=== PATIENT | male | born 1945 | race Caucasian/White ===

== ENCOUNTER 2016-10-29 12:38 | Day surgery (SDC) | payer MEDICARE, OTHER ==
[~2016-10-29] VITALS: Ht 172.7 cm; Wt 143.2 kg
[~2016-10-29 12:38] MED LIST: ALDACTONE 25MG25 M1 PO; AMLOPIDINE PO; ASPIRIN E.C.325 MG PO; ATROVENT I0.2 MG/1 M IH; CARDI-OMEGA1000 MG PO; CHROMIUM PICO500 MCG PO; CINNAMON500 MG PO; COREG 25MG25 MG/TAB PO; DALIRESP500 MCG PO; DEMADEX10 MG PO; EFFEXOR 75M75 MG/TAB PO; EFFIENT10 MG PO; FEROSUL325 MG PO; FOLIC ACID 40400 MCG PO; GLUCOSAMINE500 M1 PO; HUMALOG PEN100 U/ML SC; HUMALOG100 U/ML SC; K-DUR 10 MEQ T10 MEQ PO; LANTUS SOLOS100 U/ML SC; LANTUS100 U/ML SC; LIPITOR20 MG PO; MOBIC15 MG PO; NEXIUM 40MG40 MG PO; NITROSTAT0.3 MG SL; NORVASC 10MG10 MG PO; PERCOCET 325 MG1 TA2 PO; PROAIR HFA0.09 MG/AC IH; ROBAXIN 75750 MG/TAB PO; RT SPIRIVA18 MCG IH; THEO-24 30300 MG/CAP PO; TRICOR 48MG48 MG PO; VASOTEC 10M10 MG/TAB PO; VASOTEC10 MG PO; VASOTEC20 MG PO; VENTOLIN0.09 MG IH; VITAMIN C500 MG PO; ZANAFLEX CAPSULE2 MG PO; ZOLOFT50 MG PO
[2016-10-29 13:54] VITALS: BP 194/93; PULSE 56; TEMP 98.1
[2016-10-29] MEDS ORDERED: REQUIP0.25 MG PO (14:14)
[2016-10-29] MEDS ORDERED: BUMEX2 MG PO (14:15)
[2016-10-29] MEDS ORDERED: ASPIRIN 32325 MG/TAB PO (14:15)
[2016-10-29] MEDS ORDERED: COMBIRESP IH (14:16)
[2016-10-29] MEDS ORDERED: ALBUTEROL0.83 MG/ML IH (14:17)
[2016-10-29] MEDS ORDERED: PERCOCET 325 MG1 TA2 PO (14:17)
[2016-10-29] MEDS ORDERED: BROVANA15 MCG/2 M IH (14:17)
[2016-10-29] MEDS ORDERED: THEO-DUR 3300 MG/TAB PO (14:18)
[2016-10-29 15:00] VITALS: BP 155/56; PULSE 60; TEMP 98.3
[2016-10-29 15:15] VITALS: BP 155/53; PULSE 59
[2016-10-29 15:30] VITALS: BP 163/59; PULSE 58
[2016-10-29 15:45] VITALS: BP 167/65; PULSE 58
== END 2016-10-29 16:15 | disposition home or self-care (01) ==
LOC: SDCO 12:38
DX: R06.00 Dyspnea, unspecified (principal); R05 Cough; R09.89 Other specified symptoms and signs involving the circulatory and respiratory systems; E11.9 Type 2 diabetes mellitus without complications; G47.33 Obstructive sleep apnea (adult) (pediatric); F17.210 Nicotine dependence, cigarettes, uncomplicated; J42 Unspecified chronic bronchitis
CPT/HCPCS: J0360; J0456; J2704; J2920; J7030; J7050

== ENCOUNTER 2019-04-01 14:45 | Inpatient (IN) | payer MEDICARE, OTHER ==
[~2019-04-01] VITALS: Ht 172.7 cm; Wt 122.2 kg
[~2019-04-01 14:45] MED LIST changes: +ALBUTEROL0.83 MG/ML IH; +ASPIRIN 32325 MG/TAB PO; +BROVANA15 MCG/2 M IH; +BUMEX2 MG PO; +COMBIRESP IH; +REQUIP0.25 MG PO; +THEO-DUR 3300 MG/TAB PO
[2019-04-01 16:26] VITALS: BP 141/72; PULSE 97; TEMP 98.3
[2019-04-01] MEDS ORDERED: PEPCID 20MG TAB20 MG PO (17:05)
[2019-04-01] MEDS ORDERED: BASAGLAR K100 UNIT/1 SQ (17:08)
[2019-04-01] MEDS ORDERED: COLACE 100100 MG/CAP PO (17:11)
[2019-04-01] MEDS ORDERED: EFFIENT10 MG PO (17:11)
[2019-04-01] MEDS ORDERED: CARDURA4 MG PO (17:11)
[2019-04-01] MEDS ORDERED: FLONASEALLERGY NS (17:12)
[2019-04-01] MEDS ORDERED: FERROUS GL325 MG/TAB (17:12)
[2019-04-01] MEDS ORDERED: PULMICORT0.5 MG/2 M IH (17:13)
[2019-04-01] MEDS ORDERED: SYNTHROID0.05 MG/TA PO (17:14)
[2019-04-01] MEDS ORDERED: VENTOLIN0.09 MG IH (17:15)
[2019-04-01] MEDS ORDERED: ZYLOPRIM 300MG300 MG PO (17:15)
[2019-04-01] MEDS ORDERED: PERCOCET 325 MG1 TA2 PO (17:16)
[2019-04-01 19:27] VITALS: BP 151/67; PULSE 106; TEMP 98.5
[2019-04-01 23:54] VITALS: BP 134/78; PULSE 105; TEMP 98.3
[2019-04-02] VITALS (14 sets, daily range): BP systolic 54–147; BP diastolic 33–88; PULSE 65–79; TEMP 97.6–98.7
[2019-04-02 07:49] LABS: BASO % 0.2 % (0.0-2.0); EOS % 0.1 % (0-4.0); GRAN # 8.6 (1.4-6.5); GRAN % 85.6 % (42.2-75.2); HEMOGLOBIN 10.6 g/dl (13.5-18.0); LYMPH # 0.6 (1.2-3.4); LYMPH % 5.9 % (20.0-51.0); MEAN CELL VOLUME 86 fl (80.0-100.0); MEAN CORPUSCULAR HEMOGLOBIN 28 pg (27.0-31.0); MEAN CORPUSCULAR HGB CONC 32 g/dl (33.0-37.0); MEAN PLATELET VOLUME 11.3 fl (7.4-10.4); MONO # 0.8 (0.1-0.6); MONO % 7.4 % (1.7-9.3); PLATELET COUNT 171 K/mm3 (130-400); RED BLOOD COUNT 3.86 M/mm3 (4.20-5.60); REDCELL DISTRIBUTION WIDTH-CV 14.9 % (11.5-14.5)
[2019-04-02 08:08] LABS: HEMATOCRIT 33.2 % (42.0-52.0)
[2019-04-02 08:14] LABS: ALBUMIN 3.1 gm/dL (3.5-5.0); BILIRUBIN,TOTAL 5.6 mg/dL (0.0-1.0); CALCIUM 8.4 mg/dL (8.4-10.2); CREATININE, serum 3.34 (0.66-1.25); POTASSIUM 3.6 mmol/L (3.4-5.0); TOTAL PROTEIN 6.5 gm/dL (6.4-8.2)
--- NOTE | 2019-04-02 09:45 | NUR ---
patient assessment complete and charted. Patient sitting on edge of bed upon entry. Lung sounds diminished throughout, patient on room air and denies SOB. Pt denies chest pain, dizziness, palpitations, N/V. patient on tele in afib, rate controlled. BLE edema 2+, skin is tight. Mild guarding to abdomen. Patient has been NPO for procedure this afternoon. Denies other needs at this time. Call light within reach.
[2019-04-02 10:35] LABS: MUCOUS Present /lpf; PH 5 (5-8); SQUAMOUS EPITHELIAL 0-2 /hpf; URINE APPEARANCE Cloudy; URINE BACTERIA Rare /hpf; URINE BILIRUBIN Positive (NEGATIVE); URINE BLOOD 1+ (NEGATIVE); URINE COLOR Amber; URINE GLUCOSE Negative (NEGATIVE); URINE KETONE Negative (NEGATIVE); URINE LEUKOCYTE ESTERASE Negative (NEGATIVE); URINE NITRATE Negative (NEGATIVE); URINE PROTEIN(semi-quant) 3+ (NEGATIVE); URINE RBC None Seen /hpf; URINE UROBILINOGEN >=4.0 mg/dL (NEGATIVE)
[2019-04-02 10:44] LABS: COLLECTION METHOD CLEAN CATCH
--- NOTE | 2019-04-02 11:02 | NUR ---
Initial visit; Patient thanked Diamond Mounter for looking in on him and offering God's blessings.
--- NOTE | 2019-04-02 13:00 | NUR ---
Patient down for procedure at this time.
--- NOTE | 2019-04-02 15:00 | NUR ---
Patient back from procedure. Post op monitoring started.
--- NOTE | 2019-04-02 16:17 | NUR ---
VALERIE met with the patient and patient's son to discuss discharge plan. The patient lives in [place] with his daughter, Tatianna. He reports independence with ADLs and has a cane, walker, wheelchair, and home oxygen and a CPAP from [employer]. The patient's PCP is Dr. Erika Mata and he receives his medications through [facility] or [facility]. He reports no difficulties obtaining his meds. The patient does not have advanced directives, but he was interested in obtaining a form for DPOA-HC. VAELRIE provided. The patient plans to return home upon discharge. No additional needs at this time.
--- NOTE | 2019-04-02 18:15 | NUR ---
patient post op SBPs were in the 90s and low 100s, one recorded in 50s. Patient cuff on right arm, hard to get good fit. Cuff moved to right forearm. Systolic readings were 119, 115 and 125.
--- NOTE | 2019-04-02 18:59 | NUR ---
Patient heparin drip started. IV site for fluids attempted by TATIANA Lowery and TATIANA Hartman. Unsuccessul. TATIANA Lowery called house for shift boss to give try this evening to restart fluids. Clear liquid tray ordered. No other needs at this time.
[2019-04-02 19:01] LABS: PARTIAL THROMBOPLASTIN TIME 35.8 SECONDS (26.0-37.0)
--- NOTE | 2019-04-02 20:04 | NUR ---
Report given to TATIANA John. Informed nurse taking over cares to check BPs once second IV site was completed.
--- NOTE | 2019-04-03 02:12 | NUR ---
Heparin xA 0.36. No change in heparin gtt per orders. Recheck at 0700.
[2019-04-03 03:05] VITALS: BP 128/62; PULSE 72; TEMP 98.6
--- NOTE | 2019-04-03 03:16 | NUR ---
Called to pt room. Patient c/o chest pain. BP 128/62. HR afib 70's. Notified LARON Vasquez. See orders. BG 117. Will give ordered morphine.
[2019-04-03 03:57] LABS: TROPONIN-I 0.07 ng/mL (0.000-0.035)
--- NOTE | 2019-04-03 03:57 | NUR ---
Troponin .070. LARON Vasquez notified. Order to give nitro, recheck BP. Will notify Christina when CXR is done.
[2019-04-03 04:02] VITALS: BP 135/57; PULSE 83; TEMP 98.5
--- NOTE | 2019-04-03 04:31 | NUR ---
Patient in bed, awake. Denies pain. BG 144. Holding levemir d/t NPO at midnight, per LARON Vasquez. Denies further needs at this time.
[2019-04-03 07:55] LABS: BASO % 0.1 % (0.0-2.0); EOS # 0.1 (0.0-0.7); GRAN # 8.3 (1.4-6.5); GRAN % 85.6 % (42.2-75.2); HEMOGLOBIN 10.2 g/dl (13.5-18.0); LYMPH # 0.5 (1.2-3.4); LYMPH % 4.9 % (20.0-51.0); MEAN CELL VOLUME 87 fl (80.0-100.0); MEAN CORPUSCULAR HEMOGLOBIN 27 pg (27.0-31.0); MEAN CORPUSCULAR HGB CONC 31 g/dl (33.0-37.0); MEAN PLATELET VOLUME 11.6 fl (7.4-10.4); MONO # 0.7 (0.1-0.6); MONO % 7.1 % (1.7-9.3); PLATELET COUNT 188 K/mm3 (130-400); REDCELL DISTRIBUTION WIDTH-CV 15.2 % (11.5-14.5)
[2019-04-03 08:05] LABS: ALBUMIN 3.4 gm/dL (3.5-5.0); BILIRUBIN,TOTAL 3.4 mg/dL (0.0-1.0); CALCIUM 8.5 mg/dL (8.4-10.2); CREATININE, serum 3.57 (0.66-1.25); PHOSPHOROUS 5.4 mg/dL (2.5-4.5); POTASSIUM 3.8 mmol/L (3.4-5.0)
[2019-04-03 08:17] LABS: TROPONIN-I 0.064 ng/mL (0.000-0.035)
[2019-04-03 08:30] LABS: INR 1.1 (0.8-3.0); PROTHROMBIN TIME 12.4 SECONDS (9.7-12.8)
--- NOTE | 2019-04-03 08:30 | NUR ---
Assessment complete. Pt sitting up on side of bed, A&O x 4. Breath sounds CTAB. BS active x 4. Heparin drip infusing per orders through left AC site without s/s of complications, restarted following lab draw. Pt denies pain at this time. No further needs reported. Call light in reach.
[2019-04-03 08:35] VITALS: BP 126/63; PULSE 84; TEMP 98.3
[2019-04-03 12:22] VITALS: BP 126/69; BP 141/79; PULSE 68; PULSE 75; TEMP 98; TEMP 98.1
[2019-04-03 13:21] LABS: URINE PROTEIN:CREAT RATIO 1.15 (0.00-0.14)
[2019-04-03 15:03] VITALS: BP 109/56; PULSE 73; TEMP 98.6
--- NOTE | 2019-04-03 17:00 | NUR ---
Pt resting in bed with eyes closed, resp even and unlabored. POC for diet and weekend reviewed with pt. No further needs reported. Call light in reach.
--- NOTE | 2019-04-03 20:30 | NUR ---
Initial shift assessment done- states having back pain 07/30- will give a [place] as ordered, o2 at 2L/nc, Tele on, afib, Has SOB with exertion. Heparin drip at 27cc/hr- next hepxa at 2100-
[2019-04-03 23:03] VITALS: BP 106/68; PULSE 82; TEMP 98.5
[2019-04-04 05:40] VITALS: PULSE 76
--- NOTE | 2019-04-04 05:47 | NUR ---
Awake for the past couple hours- sitting at edge of bed,, did get another [place] for back pain 07/30
--- NOTE | 2019-04-04 07:00 | NUR ---
Pt AAOx4 resting in bed with no complaints. Pt states "I actually got some good rest last night. Night before last I only selpt one hour and wasnt allowed to eat". Heparin gtt infusion rate and HepXa level confirmed with power and recovery shift engineer RN. Call light in reach, no complaints at this time MD Uriel in to see pt at 0900, no new orders.
[2019-04-04 08:07] LABS: BASO % 0.1 % (0.0-2.0); EOS # 0.2 (0.0-0.7); EOS % 1.9 % (0-4.0); GRAN # 7.9 (1.4-6.5); GRAN % 82.4 % (42.2-75.2); HEMOGLOBIN 10.4 g/dl (13.5-18.0); LYMPH # 0.7 (1.2-3.4); LYMPH % 7.5 % (20.0-51.0); MEAN CELL VOLUME 87 fl (80.0-100.0); MEAN CORPUSCULAR HEMOGLOBIN 27 pg (27.0-31.0); MEAN CORPUSCULAR HGB CONC 31 g/dl (33.0-37.0); MEAN PLATELET VOLUME 11.1 fl (7.4-10.4); MONO # 0.7 (0.1-0.6); MONO % 7.1 % (1.7-9.3); PLATELET COUNT 218 K/mm3 (130-400); RED BLOOD COUNT 3.81 M/mm3 (4.20-5.60); REDCELL DISTRIBUTION WIDTH-CV 15.1 % (11.5-14.5)
[2019-04-04 08:17] VITALS: BP 109/63; PULSE 68; TEMP 98
[2019-04-04 08:23] LABS: ALBUMIN 3.2 gm/dL (3.5-5.0); BILIRUBIN,TOTAL 2.1 mg/dL (0.0-1.0); CALCIUM 8.5 mg/dL (8.4-10.2); CREATININE, serum 3.4 (0.66-1.25); HEMATOCRIT 33.3 % (42.0-52.0); POTASSIUM 3.7 mmol/L (3.4-5.0); TOTAL PROTEIN 6.8 gm/dL (6.4-8.2)
--- NOTE | 2019-04-04 09:00 | NUR ---
Lab called regarding delayed Hep XA level - reported to me ETA is >10min d/t reagent mixing difficulties.
--- NOTE | 2019-04-04 09:40 | NUR ---
Care assumed by care transitions managerTATIANA Ac RN
--- NOTE | 2019-04-04 10:45 | NUR ---
This nurse resumed care at this time. The patient is sitting up in bed without pain or needs. The heparin gtt is running at 28ml/hr. The call light is in place.
[2019-04-04 12:12] VITALS: BP 123/46; PULSE 76; TEMP 98.4
[2019-04-04 14:35] VITALS: BP 114/50; PULSE 97; TEMP 98.6
--- NOTE | 2019-04-04 16:20 | NUR ---
Care resumed, hand off report recieved from TATIANA Ac. Labs reviewed - HepXA =0.0. Heparin infusion assessed and found to be paused. MD Jazmine notifed. Repeat HepXA drawn, 0.0 level confirmed. Bolus and gtt resumed per protocol. TATIANA Santiago confirmed bolus dose and continued infustion dose and rate together.
[2019-04-04 20:56] VITALS: BP 137/71; PULSE 72; TEMP 98.1
--- NOTE | 2019-04-04 21:00 | NUR ---
Initial shift assessment done- resting quietly- watching TV- no requests- IV heparin drip at 28cc/hr{ 2800units/hr}-- next hepa check at 2300- Tele on- afib. Did have abd x ray tonight-
[2019-04-05] VITALS (7 sets, daily range): BP systolic 113–153; BP diastolic 46–77; PULSE 58–84; TEMP 97.4–98.6
--- NOTE | 2019-04-05 01:20 | NUR ---
hEPXA LOW AT 0.11-- WILL BOLUS 1000UNITS HEPARIN AND INCREASE DRIP TO 30.5CC/HR- NEXT HEPXA AT 0700
--- NOTE | 2019-04-05 06:04 | NUR ---
Did sleep fair throughout the night- medicated x1 with [place] for back pain 04/29, slept well after. Heparin drip at 30.5cc/hr to left hand IV site.
[2019-04-05 07:07] LABS: BASO % 0.1 % (0.0-2.0); EOS # 0.2 (0.0-0.7); EOS % 1.5 % (0-4.0); GRAN # 9.7 (1.4-6.5); GRAN % 83.8 % (42.2-75.2); HEMOGLOBIN 10.9 g/dl (13.5-18.0); LYMPH # 0.7 (1.2-3.4); LYMPH % 5.8 % (20.0-51.0); MEAN CELL VOLUME 86 fl (80.0-100.0); MEAN CORPUSCULAR HEMOGLOBIN 27 pg (27.0-31.0); MEAN CORPUSCULAR HGB CONC 32 g/dl (33.0-37.0); MEAN PLATELET VOLUME 10.5 fl (7.4-10.4); MONO # 0.8 (0.1-0.6); MONO % 7.2 % (1.7-9.3); PLATELET COUNT 247 K/mm3 (130-400); RED BLOOD COUNT 4.01 M/mm3 (4.20-5.60); REDCELL DISTRIBUTION WIDTH-CV 15.2 % (11.5-14.5)
[2019-04-05 07:10] LABS: CALCIUM 8.6 mg/dL (8.4-10.2); CREATININE, serum 3.12 (0.66-1.25); POTASSIUM 3.9 mmol/L (3.4-5.0)
--- NOTE | 2019-04-05 07:15 | NUR ---
Report received from TATIANA Kemp. PT in bed resting at side of bed, ordered breakfast, 02 at 2L NC. Will continue to monitor.
[2019-04-05 07:34] LABS: HEMATOCRIT 34.6 % (42.0-52.0)
--- NOTE | 2019-04-05 09:43 | NUR ---
Assessment charted. Pt feeling well, tolerating PO well, denies any pain right now. IVF to LH with heparin gtt and zosyn going. Telemetry on, pt is in afib rate controlled. Pt likes to sit at side of bed with feet in dependent position, discussed need to get up and ambulate today to get circulation going and promote exercise, pt waiting for son to arrive with walker and pt will ambulate. Reviewed plan for lexiscan tomorrow and possible lap choley if lexiscan negative. Will continue to monitor.
--- NOTE | 2019-04-05 18:48 | NUR ---
Pt has done well today. Up to ambulate hallws with me this afternoon, ambulates well but walks hunched over walker. 02 titrated off during shift, 98% after walk. Pt rested in chair comfortably. Tolerating PO well. Heparin gtt continues. Will give bedside shift report to nightshift nurse who will resume care.
[2019-04-06] VITALS (10 sets, daily range): BP systolic 112–128; BP diastolic 48–72; PULSE 65–85; TEMP 97.6–98.6
[2019-04-06 06:27] LABS: MEAN CELL VOLUME 87 fl (80.0-100.0); MEAN CORPUSCULAR HEMOGLOBIN 27 pg (27.0-31.0); MEAN CORPUSCULAR HGB CONC 31 g/dl (33.0-37.0); MEAN PLATELET VOLUME 10.6 fl (7.4-10.4); PLATELET COUNT 260 K/mm3 (130-400); RED BLOOD COUNT 4.05 M/mm3 (4.20-5.60); REDCELL DISTRIBUTION WIDTH-CV 15.2 % (11.5-14.5)
[2019-04-06 06:34] LABS: CALCIUM 9.1 mg/dL (8.4-10.2); POTASSIUM 4.1 mmol/L (3.4-5.0)
[2019-04-06 06:38] LABS: HEMATOCRIT 35.3 % (42.0-52.0)
--- NOTE | 2019-04-06 07:15 | NUR ---
Report received from TATIANA Mejía. PT in bed resting, awake and alert, will continue to monitor.
--- NOTE | 2019-04-06 07:54 | NUR ---
Pt has low back pain today from bed and recliner, diaper folder provided PRN pain meds. Sitting at side of bed doing am care. 1st dose of lexiscan nuc meds given. IV heparin infusing and zosyn. Anticipating testing today. NPO at this time. Assessment charted. Will continue to monitor.
[2019-04-06 08:43] LABS: BAND 9 % (0-10); EOSINOPHIL 4 % (0-4); LYMPHOCYTE 10 % (20.0-51.0); METAMYELOCYTE 2 % (0-0); NEUTROPHILS 70 % (42.0-75.2)
[2019-04-06 08:44] LABS: PLATELET ESTIMATE NORMAL (NORMAL)
[2019-04-06 15:57] LABS: HEMOGLOBIN 10.9 g/dl (13.5-18.0)
--- NOTE | 2019-04-06 18:51 | NUR ---
Pt discussed with Dr. Reid and notified him of dark black/green malodorous stools today. Dr. Reid wants to wait on surgery until the occult blood could be collected. PT and staff agreeable to plan. Ordered a CL tray and pt ate a good portion of it. Pt denies needs, resting in bed with fmaily at bedside. Will give bedside shift report to nighthshift nurse who will resume care.
--- NOTE | 2019-04-06 20:30 | NUR ---
Initial shift assessment done- tele on: Afib, denies pain at this time, has been resting for past couple hours-using Bipap . Understands to call for assistance to bathroom-also we are needing stool specimen- pt states understanding
[2019-04-07] VITALS (321 sets, daily range): BP systolic 116–150; BP diastolic 56–73; PULSE 55–87; TEMP 97.5–98; O2SAT 90–100
--- NOTE | 2019-04-07 05:28 | NUR ---
Quiet night-- was up to bathroom x2 , did have 2 black soft stool during the night- did test positive for occult blood, did let Crystal MCNULTY know- no new orders at this time.
[2019-04-07 08:02] LABS: HEMOGLOBIN 10.5 g/dl (13.5-18.0); MEAN CELL VOLUME 87 fl (80.0-100.0); MEAN CORPUSCULAR HEMOGLOBIN 27 pg (27.0-31.0); MEAN CORPUSCULAR HGB CONC 31 g/dl (33.0-37.0); MEAN PLATELET VOLUME 10.4 fl (7.4-10.4); PLATELET COUNT 294 K/mm3 (130-400); RED BLOOD COUNT 3.84 M/mm3 (4.20-5.60); REDCELL DISTRIBUTION WIDTH-CV 15.4 % (11.5-14.5)
[2019-04-07 08:05] LABS: HEMATOCRIT 33.5 % (42.0-52.0)
[2019-04-07 08:10] LABS: CALCIUM 8.9 mg/dL (8.4-10.2); CREATININE, serum 2.92 (0.66-1.25); POTASSIUM 3.9 mmol/L (3.4-5.0)
[2019-04-07 08:59] LABS: EOSINOPHIL 1 % (0-4); LYMPHOCYTE 7 % (20.0-51.0); NEUTROPHILS 88 % (42.0-75.2); PLATELET ESTIMATE NORMAL (NORMAL)
--- NOTE | 2019-04-07 10:30 | NUR ---
PT off floor for surgery. CDA
--- NOTE | 2019-04-07 11:05 | NUR ---
Completed assessment and medication administration; PT tolerated call cares well; No C/O pain or discomfort at time of assessment; PT A&Ox4, BS x4, LCTA bilaterally, no significant skin concerns; HX of AFib; PT pending surgery for cholecystectomy 04/07 n the afternoon if schedule allows per rounds this AM; PT diet changed to NPO; PT assisted to comfortable position in bed with personal items and call light within reach; No further concerns at time of exit; Will continue to monitor. CDA
[2019-04-07 17:17] LABS: HEMATOCRIT 33.3 % (42.0-52.0); HEMOGLOBIN 10.3 g/dl (13.5-18.0); MEAN CELL VOLUME 87 fl (80.0-100.0); MEAN CORPUSCULAR HEMOGLOBIN 27 pg (27.0-31.0); MEAN CORPUSCULAR HGB CONC 31 g/dl (33.0-37.0); PLATELET COUNT 267 K/mm3 (130-400); RED BLOOD COUNT 3.83 M/mm3 (4.20-5.60); REDCELL DISTRIBUTION WIDTH-CV 15.3 % (11.5-14.5)
[2019-04-07 17:28] LABS: CALCIUM 8.6 mg/dL (8.4-10.2); CREATININE, serum 2.84 (0.66-1.25)
--- NOTE | 2019-04-07 17:50 | NUR ---
Patient transferred from [facility] to ICU#7 via bed, patient sleepy but awakens easily, oriented to name and place, follows commands. Assessment complete. Pain is "okay" Call light within reach.
--- NOTE | 2019-04-07 19:28 | NUR ---
Bedside report given to TATIANA Ruby.
[2019-04-08] VITALS (454 sets, daily range): BP systolic 117–142; BP diastolic 47–68; PULSE 69–92; TEMP 98–98.6; O2SAT 79–100
[2019-04-08 05:39] LABS: MEAN CELL VOLUME 90 fl (80.0-100.0); MEAN CORPUSCULAR HGB CONC 30 g/dl (33.0-37.0); MEAN PLATELET VOLUME 10.3 fl (7.4-10.4); PLATELET COUNT 272 K/mm3 (130-400); RED BLOOD COUNT 3.67 M/mm3 (4.20-5.60); REDCELL DISTRIBUTION WIDTH-CV 15.1 % (11.5-14.5)
[2019-04-08 05:42] LABS: HEMATOCRIT 32.9 % (42.0-52.0); HEMOGLOBIN 9.9 g/dl (13.5-18.0); MEAN CORPUSCULAR HEMOGLOBIN 27 pg (27.0-31.0)
[2019-04-08 05:45] LABS: ALBUMIN 2.9 gm/dL (3.5-5.0); BILIRUBIN,TOTAL 1.2 mg/dL (0.0-1.0); CALCIUM 8.6 mg/dL (8.4-10.2); CREATININE, serum 2.55 (0.66-1.25); POTASSIUM 4.3 mmol/L (3.4-5.0); TOTAL PROTEIN 6.4 gm/dL (6.4-8.2)
[2019-04-08 06:04] LABS: ANISOCYTOSIS 1+; BAND 11 % (0-10); EOSINOPHIL 1 % (0-4); HYPOCHROMIA 1+; LYMPHOCYTE 5 % (20.0-51.0); METAMYELOCYTE 4 % (0-0); NEUTROPHILS 76 % (42.0-75.2); PLATELET ESTIMATE NORMAL (NORMAL)
--- NOTE | 2019-04-08 07:05 | NUR ---
Report received from Flori SIMPSON and care resumed.
--- NOTE | 2019-04-08 10:00 | NUR ---
Dr Stallings in to see pt.
--- NOTE | 2019-04-08 10:20 | NUR ---
Follow-up visit; Patient thanked Insurance Administrator for looking in on him again and keeping him in her prayers. Patient seems to be feeling better and attributes part of this to a 'talk with God.'
--- NOTE | 2019-04-08 11:00 | NUR ---
Dr Humphries in to see pt.
--- NOTE | 2019-04-08 12:05 | NUR ---
Dr Khan in to see pt at this time.
--- NOTE | 2019-04-08 13:25 | NUR ---
Dr Reid in to see pt at this time.
--- NOTE | 2019-04-08 14:47 | NUR ---
Pt up to wheelchair with moderate assist. Taken by wheelchair with chart and belongings to room 325. Bedside update given to Margret SIMPSON.
--- NOTE | 2019-04-08 15:00 | NUR ---
Pt arrived to floor at this time via w/c with ICU staff. Oriented to room. Resting at side of bed, Raquel brought all belongings. Denies needs, will continue to monitor.
--- NOTE | 2019-04-08 18:00 | NUR ---
Called Dr. Tyler regarding pt c/o severe pain when emptying LALO drain. he agrees it is unusual but not concerned as the drainage is not heavy and SS in coloration. Will continue to monitor.
--- NOTE | 2019-04-08 18:05 | NUR ---
Pt resting in bed, ice pack provided for L knee pain and PRN tylenol provided. Ordered supper. Resting in bed with family at bedside, will give bedside shift report to nighthshift nurse who will resume care.
[2019-04-09] VITALS: BP 122/45; PULSE 84; TEMP 98
[2019-04-09 04:00] VITALS: BP 114/49; PULSE 77; TEMP 97.9
[2019-04-09 05:48] LABS: MEAN CELL VOLUME 89 fl (80.0-100.0); MEAN CORPUSCULAR HGB CONC 30 g/dl (33.0-37.0); MEAN PLATELET VOLUME 10.2 fl (7.4-10.4); PLATELET COUNT 272 K/mm3 (130-400); RED BLOOD COUNT 3.51 M/mm3 (4.20-5.60); REDCELL DISTRIBUTION WIDTH-CV 15.1 % (11.5-14.5)
[2019-04-09 05:58] LABS: BILIRUBIN,TOTAL 0.9 mg/dL (0.0-1.0); CALCIUM 8.8 mg/dL (8.4-10.2); CREATININE, serum 2.43 (0.66-1.25); TOTAL PROTEIN 6.4 gm/dL (6.4-8.2)
[2019-04-09 05:59] LABS: HEMATOCRIT 31.2 % (42.0-52.0); HEMOGLOBIN 9.5 g/dl (13.5-18.0); MEAN CORPUSCULAR HEMOGLOBIN 27 pg (27.0-31.0)
[2019-04-09 06:51] LABS: BAND 1 % (0-10); EOSINOPHIL 1 % (0-4); LYMPHOCYTE 13 % (20.0-51.0); METAMYELOCYTE 0 % (0-0); MYELOCYTE 4 % (0-0); NEUTROPHILS 78 % (42.0-75.2); PLATELET ESTIMATE NORMAL (NORMAL)
[2019-04-09 06:52] LABS: HYPOCHROMIA 1+
--- NOTE | 2019-04-09 07:36 | NUR ---
report from Louann SIMPSON. Patient sleeping at shift change with cpap inplace.
[2019-04-09 08:06] VITALS: BP 109/54; PULSE 81; TEMP 99
--- NOTE | 2019-04-09 09:33 | NUR ---
VALERIE met with the patient to review discharge plan and to discuss physical and occupational therapies recommendation of home health vs post-acute rehab. The patient reports that he is not interested in going to a facility. He states that he would like to go home and would be agreeable to home health. VALERIE presented the patient with [email or web address]'s list of home health agencies that serve [place]. The patient reports that his daughter has home health and that he would like to give her a call to find out which agency she uses. SW to follow up with the patient on home health preference.
--- NOTE | 2019-04-09 10:50 | NUR ---
PT UP TO SIDE OF BED WITH ASSIST X2, PT C/O PAIN IN FEET. SAYS HE NORMALLY TAKES GOUT MEDICATIONS. ALLIPURONOL ON HOLD. CHUCKY RODRIGUEZ DEMONSTRATOR ELECTRIC GAS APPLIANCES IN TO SEE PATIENT FOR . SEE COMPUTER FOR NEW ORDERS. APPROX 50 MLS OF SEROSANGUINOUS DRAINAGE REMOVED FROM LALO DRAIN. MED SIZE CLOT IN DRAIN.
[2019-04-09 11:46] VITALS: BP 124/63; PULSE 78; TEMP 98
--- NOTE | 2019-04-09 15:41 | NUR ---
VALERIE followed up with the patient on home health preference. The patient states his daughter has [facility] for chore services and he chose them. VALERIE did inform the patient on how they do not have OT at this time, but how their physical therapist can do OT exercises with them. The patient verbalized understanding and was in agreeance to pursue with them. VALERIE contacted and faxed a referral to Hay at [facility]. VALERIE awaiting their screening.
[2019-04-09 16:27] VITALS: BP 119/54; PULSE 78; TEMP 98
[2019-04-09 20:00] VITALS: BP 132/61; PULSE 81; TEMP 98.5
--- NOTE | 2019-04-09 20:00 | NUR ---
Pt. sitting up in bed at this time. Pt. is A&OX3, assessment complete. INT to rt. wrist patent. TLC to rt. IJ patent. ABX running at this time. Pt. denies pain or other needs, call light within reach.
[2019-04-10] VITALS (8 sets, daily range): BP systolic 101–137; BP diastolic 38–87; PULSE 68–83; TEMP 97.4–98.1
[2019-04-10 07:02] LABS: MEAN CELL VOLUME 89 fl (80.0-100.0); MEAN CORPUSCULAR HGB CONC 31 g/dl (33.0-37.0); MEAN PLATELET VOLUME 10.4 fl (7.4-10.4); PLATELET COUNT 278 K/mm3 (130-400); REDCELL DISTRIBUTION WIDTH-CV 14.9 % (11.5-14.5)
[2019-04-10 07:12] LABS: ALBUMIN 2.9 gm/dL (3.5-5.0); BILIRUBIN,TOTAL 0.9 mg/dL (0.0-1.0); CALCIUM 8.7 mg/dL (8.4-10.2); CREATININE, serum 2.84 (0.66-1.25); POTASSIUM 3.6 mmol/L (3.4-5.0); TOTAL PROTEIN 6.2 gm/dL (6.4-8.2)
[2019-04-10 07:19] LABS: HEMATOCRIT 29.4 % (42.0-52.0); MEAN CORPUSCULAR HEMOGLOBIN 27 pg (27.0-31.0)
[2019-04-10 08:51] LABS: BAND 3 % (0-10); EOSINOPHIL 1 % (0-4); LYMPHOCYTE 9 % (20.0-51.0); NEUTROPHILS 77 % (42.0-75.2); NUCLEATED RED BLOOD CELL 1 (0-6); PLATELET ESTIMATE NORMAL (NORMAL)
[2019-04-10 08:53] LABS: HYPOCHROMIA 1+
--- NOTE | 2019-04-10 09:30 | NUR ---
PT UP TO BR WITH SBAX1 RETURNED TO RECLINER. HELD INDOCIN PER CHUCKY NEELY RN FOR DR. GUDINO. AM MEDS GIVEN ORDERED, DENIES NEEDS AT THIS TIME.
--- NOTE | 2019-04-10 10:38 | NUR ---
called dr Peters for GI consult.
--- NOTE | 2019-04-10 11:06 | NUR ---
PT TO SURGERY AT THIS TIME WITH
--- NOTE | 2019-04-10 11:49 | NUR ---
SW attended clinical rounds. The patient's hemoglobin has slowly been dropping. GI was consulted. SW to continue to follow.
--- NOTE | 2019-04-10 15:50 | NUR ---
PT TO EGD AT THIS TIME.
--- NOTE | 2019-04-10 16:51 | NUR ---
PT RETURNED TO ROOM 325 PER CART, PT AMBULATED TO ROOM FROM [facility]. EGD RESULTS NEGATIVE FOR BLEEDING.
--- NOTE | 2019-04-10 18:57 | NUR ---
REPORT TO ABBY SIMPSON.
--- NOTE | 2019-04-10 19:45 | NUR ---
Pt. sitting up in chair at this time. Pt. is A&OX3, assessment complete. TLC to rt. IJ patent. Abd. lap sites CDI, LALO drain with serosanguinous drainage noted. Pt. denies further needs, call light within reach.
[2019-04-11 05:51] VITALS: BP 109/66; PULSE 80; TEMP 98.2
--- NOTE | 2019-04-11 08:00 | NUR ---
Sitting up in chair without complaint. Eating well. IV antibiotic infusing per RIJ. Telemetry intact.
[2019-04-11 08:48] LABS: BASO % 0.1 % (0.0-2.0); EOS # 0.3 (0.0-0.7); EOS % 3.4 % (0-4.0); GRAN # 7.5 (1.4-6.5); LYMPH # 1.1 (1.2-3.4); LYMPH % 10.8 % (20.0-51.0); MEAN CELL VOLUME 87 fl (80.0-100.0); MEAN CORPUSCULAR HGB CONC 31 g/dl (33.0-37.0); MEAN PLATELET VOLUME 10.2 fl (7.4-10.4); MONO # 0.6 (0.1-0.6); MONO % 5.8 % (1.7-9.3); PLATELET COUNT 311 K/mm3 (130-400); RED BLOOD COUNT 3.59 M/mm3 (4.20-5.60); REDCELL DISTRIBUTION WIDTH-CV 14.8 % (11.5-14.5)
[2019-04-11 09:00] VITALS: BP 130/57; PULSE 70; TEMP 98
[2019-04-11 09:06] LABS: CALCIUM 8.8 mg/dL (8.4-10.2); CREATININE, serum 2.99 (0.66-1.25); HEMATOCRIT 31.3 % (42.0-52.0); HEMOGLOBIN 9.8 g/dl (13.5-18.0); MEAN CORPUSCULAR HEMOGLOBIN 27 pg (27.0-31.0); POTASSIUM 4.2 mmol/L (3.4-5.0)
[2019-04-11 12:00] VITALS: BP 113/47; PULSE 71; TEMP 98.6
--- NOTE | 2019-04-11 14:00 | NUR ---
LALO drain dc'd without difficulty. Gauze applied over site. Patient tolerated procedure well.
--- NOTE | 2019-04-11 15:30 | NUR ---
Medicated with [place] for c/o incisional soreness with ambulation.
[2019-04-11 17:21] VITALS: BP 138/58; PULSE 72; TEMP 97.8
[2019-04-11 20:00] VITALS: BP 137/57; PULSE 78; TEMP 98.3
--- NOTE | 2019-04-11 20:00 | NUR ---
PATIENT SITTING UP IN RECLINER CHAIR, IV ZOSYN CONNECTED TO RIGHT IJ, INFUSING WITHOUT PROBLEM. HAS SL TO RIGHT FA WITHOUT REDNESS OR SWELLING. IS ALERT AND ORIENTED X4. VOIDING LIGHT YELLOW URINE. HAS ABDOMINAL LAP SITES GLUED AND DRY. GAUZE COVERING OLD DRAIN SITE IS DRY AND INTACT. HAS BILATERAL LOWER LEG EDEMA WITH DISCOLORATION, NOT NEW FOR PATIENT.
--- NOTE | 2019-04-11 22:00 | NUR ---
TO BED WITH SUPERVISION AND WALKER. WAS MEDICATED WITH HS MEDS INCLUDING [place] FOR INCISIONAL PAIN AT THIS TIME. CPAP CONNECTED. CALL LIGHT WITHIN REACH.
[2019-04-12 00:08] VITALS: BP 116/45; PULSE 67; TEMP 97.6
--- NOTE | 2019-04-12 03:20 | NUR ---
Patient awake, complains of abdominal pain 02/27. Medicated with [place] at this time. Sits at side of bed.
[2019-04-12 04:33] VITALS: BP 122/54; PULSE 70; TEMP 97.5
[2019-04-12 07:51] VITALS: BP 101/65; PULSE 78; TEMP 98.1
[2019-04-12 11:57] VITALS: BP 116/56; PULSE 74; TEMP 98.5
[2019-04-12 16:12] VITALS: BP 124/53; PULSE 74; TEMP 98.2
[2019-04-12 16:34] LABS: MEAN CELL VOLUME 89 fl (80.0-100.0); MEAN CORPUSCULAR HGB CONC 30 g/dl (33.0-37.0); MEAN PLATELET VOLUME 10.3 fl (7.4-10.4); PLATELET COUNT 325 K/mm3 (130-400); RED BLOOD COUNT 3.58 M/mm3 (4.20-5.60); REDCELL DISTRIBUTION WIDTH-CV 14.5 % (11.5-14.5)
[2019-04-12 16:46] LABS: ALANINE AMINOTRANSFERASE < 6 U/L (21-72); ALBUMIN 3.3 gm/dL (3.5-5.0); ALKALINE PHOSPHATASE 94 U/L (50-136); ANION GAP 10 mmol/L (7-16); AST,SGOT 22 U/L (15-37); BILIRUBIN,TOTAL 0.8 mg/dL (0.0-1.0); BLOOD UREA NITROGEN 60 mg/dL (9-20); CALCIUM 9.1 mg/dL (8.4-10.2); CARBON DIOXIDE 27 mmol/L (22-30); CHLORIDE 103 mmol/L (98-107); CREATININE, serum 2.88 (0.66-1.25); GLUCOSE 144 mg/dL (74-106); POTASSIUM 3.9 mmol/L (3.4-5.0); SODIUM 140 mmol/L (137-145); TOTAL PROTEIN 6.9 gm/dL (6.4-8.2)
[2019-04-12 16:48] LABS: HEMATOCRIT 31.9 % (42.0-52.0); HEMOGLOBIN 9.7 g/dl (13.5-18.0); MEAN CORPUSCULAR HEMOGLOBIN 27 pg (27.0-31.0)
--- NOTE | 2019-04-12 18:00 | NUR ---
Incisional pain relieved with prn meds. Ambulating in room and urias with wheeled walker and standby assist. Afebrile.
[2019-04-12 20:17] VITALS: BP 122/56; PULSE 79; TEMP 98.6
[2019-04-13 00:11] VITALS: BP 118/55; PULSE 71; TEMP 97.4
[2019-04-13 00:17] VITALS: BP 158/82; PULSE 61; TEMP 98.2
[2019-04-13 03:18] VITALS: BP 128/61; PULSE 69; TEMP 98.1
[2019-04-13 05:46] LABS: MEAN CELL VOLUME 88 fl (80.0-100.0); MEAN CORPUSCULAR HGB CONC 31 g/dl (33.0-37.0); MEAN PLATELET VOLUME 9.9 fl (7.4-10.4); PLATELET COUNT 299 K/mm3 (130-400); RED BLOOD COUNT 3.52 M/mm3 (4.20-5.60); REDCELL DISTRIBUTION WIDTH-CV 14.6 % (11.5-14.5)
[2019-04-13 05:55] LABS: HEMOGLOBIN 9.5 g/dl (13.5-18.0); MEAN CORPUSCULAR HEMOGLOBIN 27 pg (27.0-31.0)
[2019-04-13 06:04] LABS: ALANINE AMINOTRANSFERASE < 6 U/L (21-72); ALBUMIN 3.2 gm/dL (3.5-5.0); ALKALINE PHOSPHATASE 79 U/L (50-136); ANION GAP 9 mmol/L (7-16); AST,SGOT 14 U/L (15-37); BILIRUBIN,TOTAL 0.8 mg/dL (0.0-1.0); BLOOD UREA NITROGEN 58 mg/dL (9-20); CALCIUM 8.9 mg/dL (8.4-10.2); CARBON DIOXIDE 27 mmol/L (22-30); CHLORIDE 105 mmol/L (98-107); CREATININE, serum 2.69 (0.66-1.25); GLUCOSE 92 mg/dL (74-106); POTASSIUM 4.2 mmol/L (3.4-5.0); SODIUM 141 mmol/L (137-145); TOTAL PROTEIN 6.7 gm/dL (6.4-8.2)
[2019-04-13 06:20] LABS: BAND 5 % (0-10); EOSINOPHIL 3 % (0-4); LYMPHOCYTE 17 % (20.0-51.0); METAMYELOCYTE 1 % (0-0); NEUTROPHILS 71 % (42.0-75.2)
[2019-04-13 06:21] LABS: HYPOCHROMIA 1+; PLATELET ESTIMATE NORMAL (NORMAL)
[2019-04-13 07:48] VITALS: BP 128/56; PULSE 65; TEMP 98.6
[2019-04-13] MEDS ORDERED: ELIQUIS 5MG PO (09:04)
[2019-04-13] MEDS ORDERED: CARDIZEM CD 18180 MG PO (09:05)
[2019-04-13] MEDS ORDERED: COREG12.5 MG PO (09:05)
[2019-04-13 12:13] VITALS: BP 129/59; PULSE 66; TEMP 98.2
--- NOTE | 2019-04-13 12:58 | NUR ---
First visit from the stippler. No needs right now.
--- NOTE | 2019-04-13 13:31 | NUR ---
SW met with the patient to review discharge plan. The patient is still wanting to return home with home health. The patient is to discharge back home today, 04/13, with home health services for residential/PT through [facility]. Transportation to be provided by his [id number]. No additional needs at this time.
--- NOTE | 2019-04-13 14:30 | NUR ---
PATIENT DISCHARGING HOME VIA WHEELCHAIR TO PERSONAL WITH FAMILY. GAVE DISCHARGE INSTRUCTIONS AND FOLLOW APTS. PRESCRIPTIONS SENT TO RX. TATE DC'D EARILIER. DRESSING TO RIGHT NECK CD&I WITH GAUZE & OCCLUSIVE TAPE. ANSWERED ALL QUESTIONS/CONCERNS. PATIENT DISCHARGED.
== END 2019-04-13 14:30 | disposition home health service (06) | DRG 417 ==
LOC: MEDICAL 14:45 → SURG 16:04 → MEDICAL 16:04 → ICU 04-07 16:59 → SURG 04-08 14:32
PROVIDERS: Hospitalist; Internal Medicine; Nurse Practitioner Family; Physician Assistant; Student in an Organized Health Care Education/Training Program; Surgery; ADMIT Family Medicine
PROC: 0FCD8ZZ Extirpation of Matter from Pancreatic Duct, Via Natural or Artificial Opening Endoscopic (ICD-10-PCS; 2019-04-02)
PROC: BF141ZZ Fluoroscopy of Gallbladder, Bile Ducts and Pancreatic Ducts using Low Osmolar Contrast (ICD-10-PCS; 2019-04-02)
PROC: 0DJ08ZZ Inspection of Upper Intestinal Tract, Via Natural or Artificial Opening Endoscopic (ICD-10-PCS; 2019-04-02)
PROC: BF101ZZ Fluoroscopy of Bile Ducts using Low Osmolar Contrast (ICD-10-PCS; 2019-04-07)
PROC: 0FT44ZZ Resection of Gallbladder, Percutaneous Endoscopic Approach (ICD-10-PCS; principal; 2019-04-07 13:00)
DX: K80.46 Calculus of bile duct with acute and chronic cholecystitis without obstruction (principal); K29.71 Gastritis, unspecified, with bleeding; Z68.41 Body mass index [BMI] 40.0-44.9, adult; N17.9 Acute kidney failure, unspecified; E87.0 Hyperosmolality and hypernatremia; I42.9 Cardiomyopathy, unspecified; I13.0 Hypertensive heart and chronic kidney disease with heart failure and stage 1 through stage 4 chronic kidney disease, or unspecified chronic kidney disease; N18.4 Chronic kidney disease, stage 4 (severe); I50.22 Chronic systolic (congestive) heart failure; I48.91 Unspecified atrial fibrillation; E66.01 Morbid (severe) obesity due to excess calories; J44.9 Chronic obstructive pulmonary disease, unspecified; G47.33 Obstructive sleep apnea (adult) (pediatric); M10.9 Gout, unspecified; I95.9 Hypotension, unspecified; K59.00 Constipation, unspecified; F32.9 Major depressive disorder, single episode, unspecified; K21.9 Gastro-esophageal reflux disease without esophagitis; E11.22 Type 2 diabetes mellitus with diabetic chronic kidney disease; I25.10 Atherosclerotic heart disease of native coronary artery without angina pectoris; F17.210 Nicotine dependence, cigarettes, uncomplicated; I25.2 Old myocardial infarction; G89.29 Other chronic pain; N40.0 Benign prostatic hyperplasia without lower urinary tract symptoms; M54.9 Dorsalgia, unspecified; Z95.5 Presence of coronary angioplasty implant and graft; Z85.46 Personal history of malignant neoplasm of prostate; Z79.4 Long term (current) use of insulin; Z79.82 Long term (current) use of aspirin; Z88.5 Allergy status to narcotic agent
CPT/HCPCS: 99223-AI; 99231-AI; 99232-AI; 99233-AI; 99239; A9284; A9500; C1751; C1769; C9113; J0330; J1170; J1644; J1815; J2250; J2270; J2300; J2370; J2405; J2543; J2704; J3010; J7030; Q9967